=== PATIENT | female | born 1990 | race Caucasian/White ===

== ENCOUNTER 2019-08-23 19:54 | Emergency (ER) | payer OTHER ==
[~2019-08-23] VITALS: Ht 172.7 cm; Wt 77.1 kg
[~2019-08-23 19:54] MED LIST: ACYCLOVIR 400400 MG PO; BIRTH CONTROL
[2019-08-23] MEDS ORDERED: BUSPIRONE HCL10 MG PO (20:06)
[2019-08-23 20:15] LABS: HEMATOCRIT 41.6 % (37.0-47.0); HEMOGLOBIN 14.4 gm/dL (12.0-15.0); MCHC 34.7 g/dL (28.0-37.0); MPV 7.1 fl. (7.2-11.1); RBC 4.24 mil/uL (4.20-5.00); RDW-CV 12.9 % (10.5-14.5)
[2019-08-23 20:22] LABS: CALCIUM 8.7 mg/dL (8.5-10.1); CREATININE 0.6 mg/dL (0.6-1.3); POTASSIUM 4.2 mmol/L (3.5-5.1)
[2019-08-23 20:27] LABS: ALBUMIN 3.4 g/dL (3.4-5.0); TOTAL BILIRUBIN 0.2 mg/dL (<0.1-1.0); TOTAL PROTEIN 7.3 g/dL (6.4-8.2)
[2019-08-24 00:03] VITALS: BP 125/95
== END 2019-08-24 00:04 | disposition home or self-care (01) ==
LOC: M.ERS 19:54
PROVIDERS: Personal Emergency Response Attendant
DX: O46.91 Antepartum hemorrhage, unspecified, first trimester (principal); Z3A.01 Less than 8 weeks gestation of pregnancy